=== PATIENT | male | born 1970 | race American Indian/Alaskan Native ===

== ENCOUNTER 2018-04-29 12:21 | Day surgery (SDC) | payer OTHER ==
[2018-04-24 12:56] VITALS: BMI 29.2
[2018-04-29] MEDS ORDERED: Bupivacaine 0.25% 20 ML INJ IJ ONE (13:53)
[2018-04-29] MEDS ORDERED: ceFAZolin IV 1 gm in Dextrose 1 GM/50 ML BAG IVPB ONE (13:53)
[2018-04-29] MEDS ORDERED: Lidocaine Hydrochloride 10 ML INJ ONE (13:55)
[2018-04-29] MEDS ORDERED: Propofol 10 mg/ml Inj (20 ML) ONE (14:12)
[2018-04-29] MEDS ORDERED: Midazolam 2 MG/2 ML VIAL ONE (14:12)
[2018-04-29] MEDS ORDERED: HYDROmorphone 0.5 mg/0.5 ml ISec IVP PRN (14:45)
[2018-04-29] MEDS ORDERED: Lactated Ringer's 1,000 ML IV ONE (14:45)
[2018-04-29] MEDS ORDERED: Oxycodone/Acetaminophen 5/325 mg Tab PO PRN (14:48)
[2018-04-29 15:58] VITALS: BP 161/96; PULSE 77; RESP 21; TEMP 97.8; O2SAT 95
--- NOTE | 2018-04-30 01:29 | OP ---
PROCEDURE DATE: 04/29/2018 PREOPERATIVE DIAGNOSIS: Tumor of the posterior neck. POSTOPERATIVE DIAGNOSIS: Tumor of the posterior neck. PROCEDURE PERFORMED: Wide and deep excision (radical resection of posterior neck tumor). SURGEON: Shekhar Mcgovern MD ANESTHESIA: Local sedation. BLOOD LOSS: 30 mL. POSTOPERATIVE CONDITION: Stable. INDICATIONS FOR SURGERY: This is a 47-year-old male with a history of posterior neck mass which is increased in size, became more painful. He now will undergo wide and deep excision. The mass was 3-4 cm in size. DESCRIPTION OF PROCEDURE: The patient was taken to the operating room and placed in the prone position. IV sedation was administered. The wound was anesthetized with local anesthesia. A generous elliptical incision was made surrounding the mass, was dissected into the fascial layer, completely removed. Bleeding was controlled using the Bovie, and a larger neck blood vessel was repaired. Generous full-thickness tissue flaps were raised posteriorly and superiorly and with counter incisions made, an advancement flap closure was performed with multiple layers of Monocryl. Skin was closed with subcuticular Monocryl and glue. The patient tolerated the procedure well and returned to recovery room in stable condition. Shekhar Mcgovern MD
== END 2018-04-29 16:48 | disposition home or self-care (01) ==
LOC: C.SDS 12:21
PROVIDERS: ATTEND Surgery
DX: L98.8 Other specified disorders of the skin and subcutaneous tissue (principal)
CPT/HCPCS: 11424; 82948; 88305; 88313; J2250; J2704; J3010; J7120